=== PATIENT | female | born 1935 | race Hispanic/Latino ===

== ENCOUNTER 2018-03-25 20:32 | Emergency (ER) | payer MEDICARE, OTHER ==
[2018-03-25] MEDS ORDERED: NACL 0.9% 500 ML IR ONE (21:36)
[2018-03-25] MEDS ORDERED: PERCOCET 5/325 ONE (21:46)
[2018-03-25] MEDS ORDERED: PERCOCET 5/325 PO ONE (21:58)
--- NOTE | 2018-03-25 22:01 | XRay Report ---
FINAL REPORT EXAM: XR FOREARM LT HISTORY: arm injury TECHNIQUE: Lateral and oblique views left forearm Comparison: X-ray left humerus also performed today FINDINGS: There is no evidence of acute fracture and no evidence of subluxation. There is a small bony density adjacent to the pisifom bone that does not demonstrate sharp margins and is likely not an acute fracture. There is degenerative change of the wrist. The soft tissues are unremarkable. IMPRESSION: 1. No evidence of acute fracture and no evidence of subluxation. 2. Degenerative change of the wrist. 3. Nonspecific bony density adjacent to the pisiform of bone.
--- NOTE | 2018-03-25 22:04 | XRay Report ---
FINAL REPORT EXAM: XR HUMERUS 2+V LT HISTORY: arm injury TECHNIQUE: Frontal and lateral views left humerus Comparison: X-ray left forearm also performed today FINDINGS: The bony structures are osteopenic in appearance. There is a comminuted, angulated and displaced fracture of the proximal and mid diaphysis of the humerus. There is associated soft tissue swelling/hematoma. There is degenerative change of the left glenohumeral joint. IMPRESSION: 1. Comminuted, angulated and displaced fracture proximal and mid diaphysis of the humerus.
--- NOTE | 2018-03-25 23:17 | Emergency Department Report ---
Upper Extremity - HPI Chief Complaint: Extremity Injury, Upper Stated Complaint: POSSIBLE BROKE ARM Time Seen by Provider: 03/25/18 23:05 Upper Extremity: Left Arm Occurred When: Today Mechanism: Fall Symptoms: Yes Pain with Movement, Yes Limited Range of Movement, Yes Swelling, Yes Bruising/Ecchymosis, No Deformity, No Numbness, No Weakness Other History: 82-year-old female comes since states that she slipped off a curb and fell on her left arm. Patient states that she did not hit her head did not lose consciousness and did not have any dizziness prior to the fall. Patient also reports she has a cut under her chin. Patient has a past medical history of breast cancer at the age of 69 at that time she had chemotherapy and radiation. She's had a history of a hysterectomy and a bladder tack. She has a primary care doctor Sherrell. She currently takes no medications on a daily basis has no known drug allergies. ED Review of Systems ROS: Stated complaint: POSSIBLE BROKE ARM Other details as noted in HPI Comment: All other systems reviewed and negative Musculoskeletal: arthralgia (left arm pain and swelling) ED Past Medical Hx - Past Medical History Previous Medical History?: Yes Additional medical history: anemia - Surgical History Past Surgical History?: No - Social History Smoking Status: Never Smoker Substance Use Type: None - Medications Home Medications: Home Medications Medication Instructions Recorded Confirmed Last Taken Type HYDROcodone/APAP 5-325 [[place] 1 each PO Q6HR PRN #12 tablet 03/25/18 Unknown Rx 5/325] Ibuprofen [Motrin 600 MG tab] 600 mg PO Q8H PRN #15 tablet 03/25/18 Unknown Rx Upper Extremity Exam - Exam General: Vital signs noted. No distress. Alert and acting appropriately. Head and Torso: No HEENT Abnormality (patient has a 2 cm laceration to the chin) , No Neck Tenderness, No Chest/Lungs Abnormality, No Abdominal Tenderness, No Back Tenderness Shoulder Exam: No Shoulder Tenderness, No Clavicle Tenderness Arm Exam: Yes Arm/Humerus Tenderness, No Arm Deformity Elbow: No Elbow Tenderness, No Normal Range of Motion in Elbow, No Elbow Deformity Forearm: No Forearm Tenderness, No Forearm Deformity, No Pain with Pronation, No Pain with Supination Wrist: Yes Normal ROM in Wrist, No Wrist Tenderness, No Wrist Deformity, No Snuffbox Tenderness, No Pain with Axial Thumb Compression Hand: Yes Normal ROM in Digit(s), No Hand Tenderness, No Hand Deformity, No Digit Tenderness, No Digit(s) Deformity, No Tendon Dysfunction ED Course Vital Signs 03/25/18 03/25/18 20:37 21:59 Temperature 97.9 F Pulse Rate 71 Respiratory 16 18 Rate Blood Pressure 145/59 O2 Sat by Pulse 97 Oximetry - Laceration /Wound Repair Jaw Wound Location: face (chin) Wound Length (cm): 2 Wound's Depth, Shape: into muscle, linear Wound Explored: no foreign body removed Irrigated w/ Saline (ccs): 45 Betadine Prep?: Yes Anesthesia: 1% Lidocaine Volume Anesthetic (ccs): 3 Wound Debrided: minimal Wound Repaired With: sutures Suture Size/Type: 5:0 Number of Sutures: 5 Layer Closure?: No Sterile Dressing Applied?: Yes Progress: Patient tolerated procedure well ED Medical Decision Making - Radiology Data Radiology results: report reviewed FINDINGS: The bony structures are osteopenic in appearance. There is a comminuted, angulated and displaced fracture of the proximal and mid diaphysis of the humerus. There is associated soft tissue swelling/hematoma. There is degenerative change of the left glenohumeral joint. IMPRESSION: 1. Comminuted, angulated and displaced fracture proximal and mid diaphysis of the humerus. Transcribed By: ED Dictated By: DENIZ MONSON MD Electronically Authenticated By: DENIZ MONSON MD Signed Date/Time: 03/25/182201 DD/ 01 TD/TT: 03/25/182201 - Medical Decision Making Patient has been evaluated by this provider in fast track. Percocet given for pain management X-ray of forearm in arm was taken Patient has a comminuted angulated displaced fracture of the humerus Discussed with Dr. Bocanegra orthopedic provider regarding patient's x-ray results. We will place patient in a double sugar tong. Patient will be discharged on pain medication and a referral to orthopedics. Patient and family verbalized understanding. Laceration repair by this provider patient tolerated it well discussed the patient and family that she will need to return back in 7-10 days to have sutures removed. Patient verbalized understanding. Critical care attestation.: If time is entered above; I have spent that time in minutes in the direct care of this critically ill patient, excluding procedure time. ED Disposition Clinical Impression: Humerus shaft fracture Qualifiers: Encounter type: initial encounter Fracture type: closed Fracture morphology: comminuted Fracture alignment: displaced Laterality: left Qualified Code(s): S42.352A - Displaced comminuted fracture of shaft of humerus, left arm, initial encounter for closed fracture Chin laceration Qualifiers: Encounter type: initial encounter Qualified Code(s): S01.81XA - Laceration without foreign body of other part of head, initial encounter Disposition: TO HOME OR SELFCARE Is pt being admited?: No Does the pt Need Aspirin: No Condition: Stable Instructions: Arm Fracture in Adults (ED), Laceration (ED), Suture Care (ED) Additional Instructions: Please take pain medication as prescribed. These did not operate heavy machinery make any decisions while taking narcotics. It is very important for you to wear her splint keep ice on your arm elevation and follow up with orthopedic in the next 2-3 days. Prescriptions: HYDROcodone/APAP 5-325 [[place] 5/325] 1 each PO Q6HR PRN #12 tablet PRN Reason: Pain Ibuprofen [Motrin 600 MG tab] 600 mg PO Q8H PRN #15 tablet PRN Reason: Pain Referrals: PRIMARY CAREMD [Primary Care Provider] - 3-5 Days SUSAN BOCANEGRA MD [Staff Physician] - 3-5 Days [facility] [Provider Group] - 3-5 Days Forms: Accompanied Note
[2018-03-25] MEDS ORDERED: XYLOCAINE 2%/ EPI 1:200,000 INFILTRATI ONE (23:36)
[2018-03-25] MEDS ORDERED: XYLOCAINE 1% MPF 5 mL ONE (23:40)
[2018-03-25] MEDS ORDERED: XYLOCAINE 2% INFILTRATI ONE (23:40)
[2018-03-26] MEDS ORDERED: MOTRIN PO ONE ×2 (00:17→00:18)
[2018-03-26] MEDS ORDERED: MORPHINE IM ONE (00:51)
[2018-03-26] MEDS ORDERED: MORPHINE ONE (00:55)
[2018-03-26 01:15] VITALS: BP 114/57
[2018-03-26] MEDS ORDERED: NACL 0.9% IR ONE (03:08)
[2018-03-26] MEDS ORDERED: XYLOCAINE 1% MPF 5 mL INFILTRATI ONE (03:08)
== END 2018-03-26 01:32 | disposition home or self-care (01) ==
LOC: ED 20:32
DX: S42.352A Displaced comminuted fracture of shaft of humerus, left arm, initial encounter for closed fracture (principal); S01.81XA Laceration without foreign body of other part of head, initial encounter; W01.118A Fall on same level from slipping, tripping and stumbling with subsequent striking against other sharp object, initial encounter; Y93.89 Activity, other specified; Y92.89 Other specified places as the place of occurrence of the external cause; Y99.8 Other external cause status
CPT/HCPCS: 12011; 29105; 73060; 73090; 96372; 99283; J2270